=== PATIENT | female | born 1985 | race Caucasian/White ===

== ENCOUNTER → 2017-07-14 | Emergency (ER) | payer OTHER ==
[~2017-07-14] VITALS: Ht 170.2 cm; Wt 111.1 kg
[~2017-07-14] MED LIST: ACIDOPHILUS1 EAC2 PO; AMOX1TAB12 PO; CLARITIN-D 241 EACH PO; GILTUSS TR TAB1 EACH PO; PROVERA2.5 MG; SHAROBEL0.35 MG; SYNTHROID50 MCG
== END | disposition home or self-care (01) ==
LOC: ER 11:20
DX: J06.9 Acute upper respiratory infection, unspecified (principal)

== ENCOUNTER 2022-11-22 10:50 | Emergency (ER) | payer OTHER ==
[~2022-11-22] VITALS: Ht 170.2 cm; Wt 120.7 kg
== END 2022-11-22 13:45 | disposition home or self-care (01) ==
LOC: ER 10:50
DX: N93.8 Other specified abnormal uterine and vaginal bleeding (principal); E03.8 Other specified hypothyroidism